=== PATIENT | female | born 1970 | race Caucasian/White ===

== ENCOUNTER 2022-12-28 09:37 | Emergency (ER) | payer MEDICAID ==
[2022-12-28] MEDS ORDERED: MORPHINE 2 MG/ML CARPUJECT IVP STA ×2 (10:19→12:47)
[2022-12-28] MEDS ORDERED: ONDANSETRON 4 MG/2 ML VIAL IVP STA (10:20)
[2022-12-28] MEDS ORDERED: SODIUM CHLORIDE 0.9% 1,000 ML IV STA ×2 (10:20→14:08)
[2022-12-28 10:25] LABS: BASOPHILS % (AUTO) 0.4 %; HCT - HEMATOCRIT 39.2 % (37.0-47.0); HGB - HEMOGLOBIN 13.4 g/dL (12.0-16.0); LYMPHOCYTES # (AUTO) 1.1 10^3/uL (1.5-3.5); LYMPHOCYTES % (AUTO) 10.9 %; MEAN CORPUSCULAR HEMOGLOBIN 32.6 pg (27.0-31.0); MEAN CORPUSCULAR HGB CONC 34.2 g/dL (32.0-36.0); MEAN CORPUSCULAR VOLUME 95.4 fL (81.0-99.0); MEAN PLATELET VOLUME 9.6 fL (7.9-10.8); MONOCYTES # (AUTO) 0.7 10^3/uL (0.0-1.0); MONOCYTES % (AUTO) 7.2 %; NEUTROPHILS % (AUTO) 81.1 %; PLT - PLATELET COUNT 308 10^3/uL (130-450); RED BLOOD COUNT 4.11 10^6/uL (4.20-5.40); WHITE BLOOD COUNT 9.9 x10^3/uL (4.8-10.8)
[2022-12-28] MEDS ORDERED: iohexoL-300 100 ML VIAL ONE (10:32)
--- NOTE | 2022-12-28 10:37 | ED Physician Documentation ---
PD HPI ABD PAIN - Stated complaint Stated Complaint: ABD PAIN/VOMITTING - Chief complaint Chief Complaint: Abd Pain - History obtained from History obtained from: Patient - Additional information Additional information: Patient is a 52-year-old female with no significant prior medical history presenting for evaluation of abdominal pain, nausea and vomiting starting yesterday afternoon. Patient reports having multiple episodes of emesis consisting of food, nonbloody. Has not had a BM in 2 days. Reports lower abdominal pain. Reports feeling feverish and chills yesterday. Denies prior history of abdominal surgeries. No dysuria. Denies concern for but recent menses have been irregular. No chest pain or difficulty breathing. Patient is visiting from out of town from [place]. Denies any known sick contacts. Reports feeling sick already prior to having lunch yesterday and thus does not believe food is the cause. Review of Systems Constitutional: denies: Fever Cardiac: denies: Chest pain / pressure Respiratory: denies: Dyspnea GI: reports: Abdominal Pain, Nausea, Vomiting. denies: Bloody / black stool : denies: Dysuria Neurologic: denies: Headache PD PAST MEDICAL HISTORY - Past Medical History Past Medical History: Yes Cardiovascular: None Respiratory: None Neuro: None Endocrine/Autoimmune: None GI: None MANAGER FUND: None : None HEENT: None Psych: Depression, ADD/ADHD Musculoskeletal: None Derm: None - Past Surgical History Past Surgical History: No - Allergies Allergies/Adverse Reactions: Allergies Allergy/AdvReac Type Severity Reaction Status Date / Time Penicillins Allergy Unknown Verified 12/28/22 09:59 - Social History Does the pt smoke?: No Smoking Status: Never smoker Does the pt drink ETOH?: Yes Does the pt have substance abuse?: No PD ED PE NORMAL - General General: Alert and oriented X 3, No acute distress, Well developed/nourished - HEENT HEENT: Atraumatic - Neck Neck: Supple, no meningeal sign - Cardiac Cardiac: RRR, No murmur - Respiratory Respiratory: No respiratory distress, Clear bilaterally - Abdomen Abdomen: Normal bowel sounds, Soft, Non distended, Other (Suprapubic and right lower quadrant tenderness to palpation) - Derm Derm: Warm and dry Results - Vitals Vitals: Vital Signs - 24 hr 12/28/22 12/28/22 12/28/22 09:56 12:44 14:00 Temperature 36.7 C 36.7 C 36.6 C Heart Rate 86 99 87 Respiratory 16 18 18 Rate Blood Pressure 146/120 H 147/103 H 123/86 H O2 Saturation 100 98 96 Oxygen O2 Source Room air - Labs Labs: Laboratory Tests 12/28/22 12/28/22 12/28/22 10:17 10:17 10:17 WBC 9.9 RBC 4.11 L Hgb 13.4 Hct 39.2 MCV 95.4 MCH 32.6 H MCHC 34.2 RDW 12.0 Plt Count 308 MPV 9.6 Neut # (Auto) 8.0 H Lymph # (Auto) 1.1 L [place] # (Auto) 0.7 Eos # (Auto) 0.0 Baso # (Auto) 0.0 Absolute Nucleated RBC 0.00 Nucleated RBC % 0.0 Sodium Potassium Chloride Carbon Dioxide Anion Gap BUN Creatinine Estimated GFR (MDRD) Glucose Calcium Total Bilirubin AST ALT Alkaline Phosphatase Total Protein Albumin Globulin Albumin/Globulin Ratio Lipase Urine Color YELLOW Urine Clarity SL. CLOUDY Urine pH 6.0 Ur Specific [place] >=1.030 H Urine Protein NEGATIVE Urine Glucose (UA) NEGATIVE Urine Ketones >=80 H Urine Occult Blood NEGATIVE Urine Nitrite NEGATIVE Urine Bilirubin NEGATIVE Urine Urobilinogen 0.2 (NORMAL) Ur Leukocyte Esterase NEGATIVE Urine RBC None Seen Urine WBC 0-3 Ur Squamous Epith Cells MANY Squamous H Urine Bacteria Moderate H Ur Microscopic Review INDICATED Urine Culture Comments NOT INDICATED Urine HCG, Qual NEGATIVE 12/28/22 10:47 WBC RBC Hgb Hct MCV MCH MCHC RDW Plt Count MPV Neut # (Auto) Lymph # (Auto) [place] # (Auto) Eos # (Auto) Baso # (Auto) Absolute Nucleated RBC Nucleated RBC % Sodium 133 L Potassium 3.7 Chloride 96 L Carbon Dioxide 27 Anion Gap 10.0 BUN 14 Creatinine 0.4 L Estimated GFR (MDRD) 169 Glucose 105 H Calcium 9.6 Total Bilirubin 0.9 AST 22 ALT 19 Alkaline Phosphatase 53 Total Protein 7.7 Albumin 4.6 Globulin 3.1 Albumin/Globulin Ratio 1.5 Lipase 18 Urine Color Urine Clarity Urine pH Ur Specific [place] Urine Protein Urine Glucose (UA) Urine Ketones Urine Occult Blood Urine Nitrite Urine Bilirubin Urine Urobilinogen Ur Leukocyte Esterase Urine RBC Urine WBC Ur Squamous Epith Cells Urine Bacteria Ur Microscopic Review Urine Culture Comments Urine HCG, Qual PD Medical Decision Making - ED course Complexity details: reviewed results, re-evaluated patient, d/w patient ED course: Patient presenting for evaluation of abdominal pain With nausea and vomiting. She has significant tenderness to the lower abdomen. Vital signs have been stable. CBC and chemistries were reviewed without significant findings. Urine analysis does not suggest infection and she is not . CT scan of the abdomen and pelvis was obtained which I reviewed which demonstrates a cecal volvulus. I did consult with general surgery here who evaluated the patient. With recommendations for an open hemicolectomy. Patient is visiting from out of the area and would like a second opinion at another facility closer to her home. She understood the risks of delaying treatment. Ultimately we were able to find an accepting facility with [facility] and surgeon. Due to delays in ground transportation we opted to transport by air. Patient remained in stable vital signs throughout ED course. Pain was controlled with IV morphine, IV Dilaudid and patient also received IV fluids along with Zofran. 1230 - D/W Dr. Howard. She will review the images and call us back. I have updated the patient regarding her findings and likely need for admission with surgery. 1309 - Dr. Howard has seen the patient. Pt is visiting from [place] and would like to be transferred to [facility] or . She understands the risks in delaying the procedure and definitive treatment. However per patient wishes we will reach out to [facility] and [facility] to see if they have any available beds. 1322 - and [facility] are both at capacity with [facility] down 18 staff members today. I have updated the patient with this information. She states that her boyfriend is reaching out to someone he knows at [facility] and she will let us know when she hears back from him and has made her decision about what she would like to do. 1345 - Pt reports Dr. Iraheta at is helping to Facilitate a transfer and bed. We will reach back out to the [facility] transfer center and request to speak to the surgeon. I have also explained incidental findings on CT scan of hypodensity in the liver. I have given the patient a copy of her CT scan and she is aware that she will need an outpatient study to better evaluate this area. 1434 - D/W Dr. Iraheta. Has accepted the patient for transfer. Does not see a reason for antibiotics at this time. As she is not vomiting also does not feel an NG is necessary. Transfer center will call us back with an ETA on when a bed should be available. If there is a significant delay we will likely then transfer to ER Patient has been updated regarding the plan. Vital signs have been stable. Departure - Departure Disposition: 02 Transfer Acute Care [facility]osp Clinical Impression: Cecal volvulus, Hypodense mass of liver Condition: Fair Comments: Incompletely characterized 1.5 cm right hepatic hypodensities which likely represents a cyst or hemangioma. Recommend outpatient CT or MRI using liver mass protocol for further evaluation. Forms: PCP List
[2022-12-28 10:56] LABS: BILIRUBIN,URINE NEGATIVE (NEGATIVE); GLUCOSE, URINE (UA) NEGATIVE (NEGATIVE); KETONES,URINE (UA) >=80 mg/dL (NEGATIVE); LEUKOCYTE ESTERASE, URINE NEGATIVE (NEGATIVE); NITRITE,URINE NEGATIVE (NEGATIVE); OCCULT BLOOD,URINE NEGATIVE (NEGATIVE); PROTEIN,URINE NEGATIVE (NEGATIVE); UROBILINOGEN,URINE 0.2 (NORMAL) E.U./dL (NORMAL)
[2022-12-28 11:00] LABS: CLARITY,URINE SL. CLOUDY (CLEAR)
[2022-12-28 11:01] LABS: HCG UR QUAL NEGATIVE
[2022-12-28 11:14] LABS: ALBUMIN 4.6 g/dL (3.2-5.5); ALBUMIN/GLOBULIN RATIO 1.5 (1.0-2.2); BILIRUBIN,TOTAL 0.9 mg/dL (0.2-1.0); CALCIUM 9.6 mg/dL (8.5-10.3); CREATININE 0.4 mg/dL (0.6-1.3); POTASSIUM 3.7 mmol/L (3.5-4.5); TOTAL PROTEIN 7.7 g/dL (6.4-8.9)
[2022-12-28 11:16] LABS: RBC,URINE None Seen /HPF (0-5); SQUAMOUS EPITHELIAL CELL,UR MANY Squamous (<= Few); WBC,URINE 0-3 /HPF (0-5)
[2022-12-28 11:17] LABS: BACTERIA,URINE Moderate /HPF (None Seen)
--- NOTE | 2022-12-28 12:28 | CT Report ---
PROCEDURE: ABDOMEN/PELVIS W INDICATIONS: RLQ pain/vomiting CONTRAST: Omni 300 100ml TECHNIQUE: After the administration of contrast, 5 mm thick sections acquired from the diaphragms to the symphys is. 5 mm thick coronal and sagittal reformats were acquired. For radiation dose reduction, the foll owing was used: automated exposure control, adjustment of mA and/or kV according to patient size. COMPARISON: None FINDINGS: Image quality: Excellent. Lung bases and heart: Unremarkable. Liver: Hepatic steatosis. There is an incompletely characterized 1.5 cm hepatic hypodensity in the ri ght hepatic lobe (image 17/series 3). Gallbladder and biliary tree: No radiopaque stones or wall thickening. No biliary dilation. Spleen: No splenomegaly. Pancreas: No pancreatic ductal dilation. Adrenals: No adrenal nodule. Kidneys and ureters: No hydronephrosis. No renal cystic lesion which requires follow up. No solid mas s. Bowel and peritoneum: There is abnormally dilated cecum with apparent abnormal rotation compatible wi th cecal volvulus. There is associated inflammatory stranding and adjacent free fluid. The colon dist ally is decompressed. No proximal obstruction of the small bowel. Minimal mesenteric stranding. No pa thologic free fluid. Lymph nodes: No central or retroperitoneal adenopathy. Vessels: No infrarenal aortic aneurysm. PELVIS Reproductive organs: Unremarkable. Bladder: No abnormal wall thickening, accounting for underdistension. Pelvic lymph nodes: No pelvic adenopathy by size criteria. Bones: No aggressive osseous abnormality. Other: No significant ventral or inguinal hernia. IMPRESSION: Findings compatible with cecal volvulus with associated inflammatory changes. Findings are concerning for early compromise bowel. Recommend further evaluation with surgical consultation. Incompletely characterized 1.5 cm right hepatic hypodensities which likely represents a cyst or heman gioma. Recommend outpatient CT or MRI using liver mass protocol for further evaluation. Findings were discussed with Dr. Quinn at 1127 AKST (1227 PST). Reviewed by: Jp Figueroa MD on 12/28/2022 11:27 AM AKDT Approved by: Jp Figueroa MD on 12/28/2022 11:27 AM AKDT Station ID: [id number]
--- NOTE | 2022-12-28 13:23 | CONSULTATION NOTE ---
Referring Provider Name of Referring Provider:: ED (Kai) Consult Date: 12/28/22 Chief Complaint - Chief Complaint Chief Complaint: abdominal pain History of Present Illness - Admitted From Admitted From:: n/a - History Obtained From Records Reviewed: yes History obtained from: chart, ED provider, patient - History of Present Illness HPI Comment/Other: This is a 52-year-old female who states she had sudden onset lower abdominal pain that felt like cramping beginning at approximately 12:00 noon yesterday. Her pain is located throughout her lower abdomen, she denies radiation. Throughout the afternoon, her pain worsened, it was associated with nausea and multiple episodes of nonbloody, nonbilious emesis. Her pain is associated with bloating. She has not had a bowel movement for 2 days. She has never had similar pain in the past. Today, her pain has continued, prompting her to come to the emergency department. The patient has no history of previous surgery. She has never had a colonoscopy. The patient states she lives in [place], [place]. History - Past Medical History Cardiovascular: reports: None Respiratory: reports: None Neuro: reports: None Endocrine/Autoimmune: reports: None GI: reports: None A/C TECH: reports: None : reports: None HEENT: reports: None Psych: reports: Depression, Anxiety, ADD/ADHD Musculoskeletal: reports: None Derm: reports: None MRSA Hx?: No - Past Surgical History General: reports: Other (Patient denies previous surgery) Meds/Allgy - Allergies Allergies/Adverse Reactions: Allergies Allergy/AdvReac Type Severity Reaction Status Date / Time Penicillins Allergy Unknown Verified 12/28/22 09:59 Review of Systems - Constitutional Constitutional: reports: Other (A complete 10 point review of symptoms is otherwise negative except for that noted in HPI and PMH.) Exam - Vital Signs Vital Signs: Vital Signs x48h Temp Pulse Resp BP Pulse Ox 12/28/22 12:44 36.7 C 99 18 147/103 H 98 12/28/22 09:56 36.7 C 86 16 146/120 H 100 - Physical Exam Comments/Other: GEN: No acute distress, appears stated age, alert and oriented HEENT: NCAT, MMM, EOMI NEURO: CN II-XII grossly intact, no obvious focal deficits CV: RRR, no murmer appreciated PULM: Nonlabored, on room air ABD: soft, with marked distention, bilateral lower quadrant tenderness to palpation, no rebound, positive voluntary guarding CIRCULATORY: no clubbing, cyanosis, or edema SKIN: no lesions appreciated LYMPH: no obvious lymphadenopathy MSK: 4/4 strength in all extremities PSYCH: Affect is appropriate Conclusion and Plan - Lab Results Laboratory Results 12/28/22 10:47: Sodium 133 L, Potassium 3.7, Chloride 96 L, Carbon Dioxide 27, Anion Gap 10.0, BUN 14, Creatinine 0.4 L, Estimated GFR (MDRD) 169, Glucose 105 H, Calcium 9.6, Total Bilirubin 0.9, AST 22, ALT 19, Alkaline Phosphatase 53, Total Protein 7.7, Albumin 4.6, Globulin 3.1, Albumin/Globulin Ratio 1.5, Lipase 18 12/28/22 10:17: Urine HCG, Qual NEGATIVE 12/28/22 10:17: Urine Color YELLOW, Urine Clarity SL. CLOUDY, Urine pH 6.0, Ur Specific [place] >=1.030 H, Urine Protein NEGATIVE, Urine Glucose (UA) NEGATIVE, Urine Ketones >=80 H, Urine Occult Blood NEGATIVE, Urine Nitrite NEGATIVE, Urine Bilirubin NEGATIVE, Urine Urobilinogen 0.2 (NORMAL), Ur Leukocyte Esterase NEGATIVE, Urine RBC None Seen, Urine WBC 0-3, Ur Squamous Epith Cells MANY Squamous H, Urine Bacteria Moderate H, Ur Microscopic Review INDICATED, Urine Culture Comments NOT INDICATED 12/28/22 10:17: WBC 9.9, RBC 4.11 L, Hgb 13.4, Hct 39.2, MCV 95.4, MCH 32.6 H, MCHC 34.2, RDW 12.0, Plt Count 308, MPV 9.6, Neut # (Auto) 8.0 H, Lymph # (Auto) 1.1 L, [place] # (Auto) 0.7, Eos # (Auto) 0.0, Baso # (Auto) 0.0, Absolute Nucleated RBC 0.00, Nucleated RBC % 0.0 - Diagnostic Imaging Results Diagnostic Imaging Results: positive: Final report reviewed, Read independently Diagnostic Imaging Results Comments: The patient has a cecal volvulus without obvious signs of obstruction. She does have some localized fat stranding and a small amount of pericolonic fluid concerning for pending bowel compromise. There is no free air. There is no obvious sign of perforation.I personally reviewed and interpreted the images, and reviewed the report from the study - Diagnosis Diagnosis: Cecal volvulus - Plan Plan: This is a 52-year-old female with: 1. Cecal volvulus The patient's history, physical exam, laboratory studies, and imaging are consistent with this diagnosis. Imaging is concerning for developing bowel compromise. There is no obvious obstruction. There is no sign of perforation. I explained the findings and diagnosis with the patient and her boyfriend over the phone. The treatment for cecal volvulus is surgical resection of the right colon. Due to the extent of the patient's distention, she will need an open procedure. I recommended that we proceed with open right hemicolectomy at this time. The patient is interested in a second opinion regarding possible laparoscopic options, and prefers to be transferred. She would prefer to go to [facility] or [facility]. Possible transfer pending. I explained to the patient that transfer at this time can be difficult due to bed limitations. If no beds are available, I strongly encouraged the patient to consider having surgery here today, due to the risk for perforation and/or bowel compromise. -I recommend the patient remain n.p.o. until surgery or transfer. -I am available to see the patient again if she is unable to transfer or changes her mind. Thank you for consulting me in the care of this patient.
[2022-12-28] MEDS ORDERED: iohexoL-300 100 ML VIAL IVP ONE (14:00)
[2022-12-28] MEDS ORDERED: DIATRIZOATE MEGLU/DIATRIZO SOD 30 ML BOTTLE PO ONE (14:00)
[2022-12-28] MEDS ORDERED: HYDROmorphone 1 MG/ML CARPUJECT IVP STA (14:12)
[2022-12-28 14:51] VITALS: BP 123/86
== END 2022-12-28 16:37 | disposition short-term general hospital (02) ==
LOC: ED 09:37
DX: K56.2 Volvulus (principal); R16.0 Hepatomegaly, not elsewhere classified
CPT/HCPCS: 36415; 74177; 80053; 81001; 81025; 83690; 85025; 96374; 96375; 96376; 99285; J1170; Q9967; 81003; 87086